=== PATIENT | male | born 1960 | race Caucasian/White ===

== ENCOUNTER 2016-11-27 12:32 | Emergency (ER) | payer BC ==
[2016-11-27 15:20] VITALS: BP 130/82
--- NOTE | 2016-11-27 15:26 | UC ---
Abdominal Pain Male HPI - HPI Summary HPI Summary: AT 11AM HAD SUDDEN ONSET RUQ SHARP ABDOMINAL PAIN THAT RADIATED TO BACK. ONE HOUR LATER SYMPTOMS RESOLVED. NO HISTORY OR FAMILY HISTORY OF PANCREATIC, LIVER OR GB CONCERNS. DRINKS 2 X 6PACKS OF BEER EVERY WEEKEND, NO BEER DURING WEEK. NO FEVER. NO NAUSEA NO VOMITING. NO DIARRHEA, GAS, BURPING OR CONSTIPATION. NO TRAUMA. - History of Current Complaint Chief Complaint: UCAbdominalPain Stated Complaint: SUDDEN ONSET ABDOMINAL PAIN Time Seen by Provider: 11/27/16 15:02 Hx Obtained From: Patient Onset/Duration: Sudden Onset, Lasting Hours, Resolved Timing: Constant Severity Initially: Moderate Severity Currently: None Pain Intensity: 0 Pain Scale Used: 0-10 Numeric Location: Discrete At: RUQ, Epigastric Radiates: Yes Radiates to: Back Character: Colicy, Sharp Aggravating Factor(s):: Nothing Alleviating Factor(s): Spontaneous Resolution Associated Signs And Symptoms: Negative: Diaphoresis, Fever, Cough, Chest Pain, Constipation, Blood in Stool, Urinary Symptoms, Decreased Appetite, Nausea, Vomiting, Diarrhea - Risk Factors Testicular Torsion: Negative Cardiac Risk Factors: Negative - Allergies/Home Medications Allergies/Adverse Reactions: Allergies Allergy/AdvReac Type Severity Reaction Status Date / Time Sulfamethoxazole Allergy Intermediate Rash Verified 11/27/16 13:48 w/Trimethoprim [From Bactrim] Penicillins Allergy Unknown Unknown Verified 11/27/16 13:48 Reaction Details PMH/Surg Hx/FS Hx/Imm Hx Previously Healthy: Yes Endocrine History Of: Denies: Diabetes, Thyroid Disease, Hyperthyroidism, Hypothyroidism, Dyslipidemia Cardiovascular History Of: Reports: Hypertension Denies: Cardiac Disorders, Pacemaker/ICD, Myocardial Infarction, Congestive Heart Failure, Atrial Fibrillation, Deep Vein Thrombosis, Bleeding Disorders Respiratory History Of: Reports: COPD, Asthma GI/ History Of: Reports: Kidney Stones Denies: Gastroesophageal Reflux, Ulcer, Gastrointestinal Bleed, Gall Bladder Disease, Diverticulitis, Renal Disease, Urosepsis Neurological History Of: Denies: TIA, CVA, Dementia, Seizures, Migraine Psychological History Of: Denies: Anxiety, Depression, Bipolar Disorder, Schizophrenia, Post Traumatic Stress Disorder Cancer History Of: Denies: Lung Cancer, Colorectal Cancer, Breast Cancer, Prostate Cancer, Cervical Cancer Other History Of: Negative For: HIV, Hepatitis B, Hepatitis C, Anticoagulant Therapy - Surgical History Surgical History: Yes Surgery Procedure, Year, and Place: T&A - Family History Known Family History: Positive: None Negative: Other - LIVER, GLL BLADDERNO - Social History Alcohol Use: Occasionally Substance Use Type: None Smoking Status (MU): Heavy Every Day Tobacco Smoker Type: Cigarettes Amount Used/How Often: 1/2 pack per day Have You Smoked in the Last Year: Yes When Did the Patient Quit Smoking/Using Tobacco: 08/18/15 Household Exposure Type: Cigarettes Review of Systems Constitutional: Negative Skin: Negative Eyes: Negative ENT: Negative Respiratory: Negative Cardiovascular: Negative Gastrointestinal: Abdominal Pain - RESOLVED Genitourinary: Negative Motor: Negative Neurovascular: Negative Musculoskeletal: Negative Neurological: Negative Psychological: Negative All Other Systems Reviewed And Are Negative: Yes Physical Exam Triage Information Reviewed: Yes Appearance: Well-Appearing, No Pain Distress, Well-Nourished Vital Signs: Initial Vital Signs Temp 97.2 F 11/27/16 13:50 Pulse 66 11/27/16 13:50 Resp 14 11/27/16 13:50 BP 139/80 11/27/16 13:50 Pulse Ox 100 11/27/16 13:50 Vital Signs Reviewed: Yes Eye Exam: Normal ENT Exam: Normal ENT: Positive: Normal ENT inspection, Hearing grossly normal, Pharynx normal, TMs normal Dental Exam: Normal Neck exam: Normal Neck: Positive: Supple, Nontender, No Lymphadenopathy Respiratory Exam: Normal Respiratory: Positive: Chest non-tender, Lungs clear, Normal breath sounds, No respiratory distress, No accessory muscle use Cardiovascular Exam: Normal Cardiovascular: Positive: RRR, No Murmur, Pulses Normal Abdominal Exam: Normal Abdomen Description: Positive: Nontender, No Organomegaly, Soft. Negative: Bruit, CVA Tenderness (R), Distended, Guarding, Hepatomegaly, McBurney's Point Tenderness, Splenomegaly Bowel Sounds: Positive: Present Musculoskeletal Exam: Normal Musculoskeletal: Positive: Strength Intact, ROM Intact, No Edema Neurological Exam: Normal Psychological Exam: Normal Psychological: Positive: Normal Response To Family Skin Exam: Normal Abd Pain Male Course/Dx - Differential Dx/Clinical Impression Differential Diagnosis/HQI/PQRI: Abdominal Aortic Aneurysm, Appendicitis, Bowel Obstruction, Constipation, Gall Bladder Disease, Ischemic Bowel, Pancreatitis, Pneumonia Provider Diagnoses: ACUTE ABDOMINAL PAIN, RESOLVED Discharge - Discharge Plan Condition: Stable Disposition: HOME Patient Education Materials: Acute Abdominal Pain (ED) Referrals: SHIVANI Salazar [Primary Care Provider] -
== END 2016-11-27 15:20 | disposition home or self-care (01) ==
LOC: UCCORT 12:32
DX: R10.11 Right upper quadrant pain (principal); R10.13 Epigastric pain; I10 Essential (primary) hypertension; J44.9 Chronic obstructive pulmonary disease, unspecified; J45.909 Unspecified asthma, uncomplicated; Z87.442 Personal history of urinary calculi; Z88.0 Allergy status to penicillin; Z88.2 Allergy status to sulfonamides; Z87.891 Personal history of nicotine dependence
CPT/HCPCS: 99212; G0463

== ENCOUNTER 2018-12-05 10:19 | Emergency (ER) | payer BC, OTHER ==
[2018-12-05] MEDS ORDERED: Ketorolac INJ* 60 MG/2 ML VIAL IM ONE (11:15)
[2018-12-05] MEDS ORDERED: Cyclobenzaprine TAB* 10 MG PO ONE (11:15)
--- NOTE | 2018-12-05 11:25 | UC ---
Back Pain HPI - HPI Summary HPI Summary: per triage, "I have a pain [left lower back]." Atraumatic left lower back pain for one week; worsening over the last three days. Pain is constant and somewhat alleviated by sitting and lying. Pain in aggrevated by movement "really bad when I try to start walking". Denies fever or urinary symptoms. Similar previous episode "around this area" that was a kidney stone that required surgical intervention. pt states had a large kidney stone 5 years ago that required surgery to remove it. pain today resolves with lying flat in bed and worsens with any type of movement. it was more episodic at onset but is more constant now. - History of Current Complaint Chief Complaint: UCBackPain Stated Complaint: LOWER BACK PAIN Time Seen by Provider: 12/05/18 11:06 Hx Obtained From: Patient Pain Intensity: 8 Aggravating Factor(s): Movement Alleviating Factor(s): Rest Associated Signs And Symptoms: Negative: Fever, Weakness, Numbness, Tingling, Abdominal Pain, Flank Pain, Bladder Incontinence, Bowel Incontinence Related History: Similar Episode Dx As - kidney stone - Risk Factors Cauda Equina Risk Factors: Negative Epidural Abscess Risk Factors: Negative - Allergies/Home Medications Allergies/Adverse Reactions: Allergies Allergy/AdvReac Type Severity Reaction Status Date / Time Penicillins Allergy Unknown Verified 12/05/18 10:53 Reaction Details sulfamethoxazole Allergy Rash Verified 12/05/18 10:53 [From Bactrim] trimethoprim [From Bactrim] Allergy Rash Verified 12/05/18 10:53 Home Medications: Home Medications Acetaminophen [Acetaminophen Extra Strength] 1,500 mg PO ONCE 12/05/18 [History Confirmed 12/05/18] Fluticasone-Salmeterol 250-50* [Advair Diskus 250-50*] 1 puff INH BID 12/05/18 [ History Confirmed 12/05/18] amLODIPine TAB* [Norvasc 5 mg TAB*] 10 mg PO DAILY 12/05/18 [History Confirmed 12/05/18] PMH/Surg Hx/FS Hx/Imm Hx Cardiovascular History: Hypertension Respiratory History: Asthma GI/ History: Kidney Stones Other History Of: Negative For: HIV, Hepatitis B, Hepatitis C, Anticoagulant Therapy - Surgical History Surgical History: Yes Surgery Procedure, Year, and Place: Nephrolithiasis, ~2016, [place]; T&A - Family History Known Family History: Positive: None Negative: Other - LIVER, GLL BLADDERNO - Social History Alcohol Use: Weekly Substance Use Type: None Smoking Status (MU): Light Every Day Tobacco Smoker Type: Cigarettes Amount Used/How Often: <1/5 PPD Length of Time of Smoking/Using Tobacco: Since Age 22 Have You Smoked in the Last Year: Yes When Did the Patient Quit Smoking/Using Tobacco: 08/18/15 Household Exposure Type: Cigarettes Review of Systems All Other Systems Reviewed And Are Negative: Yes Constitutional: Negative: Fever, Chills Cardiovascular: Negative: Chest Pain Gastrointestinal: Negative: Abdominal Pain Genitourinary: Negative: Dysuria, Hematuria, Frequency, Urgency Musculoskeletal: Positive: Other: - L low back pain Neurological: Negative: Weakness, Paresthesia, Numbness Physical Exam Triage Information Reviewed: Yes Appearance: Pain Distress Vital Signs: Initial Vital Signs Temp 98.2 F 12/05/18 10:49 Pulse 70 12/05/18 10:49 Resp 18 12/05/18 10:49 BP 138/75 12/05/18 10:49 Pulse Ox 99 12/05/18 10:49 Vital Signs Reviewed: Yes Eyes: Positive: Conjunctiva Clear ENT: Positive: Normal ENT inspection Neck: Positive: Supple, Nontender, No Lymphadenopathy, Other: - c-spine is non tender Respiratory: Positive: Lungs clear, Normal breath sounds, No respiratory distress Cardiovascular: Positive: RRR, No Murmur Abdomen Description: Positive: Nontender, No Organomegaly, Soft. Negative: Distended, Guarding, Pulsatile Mass Bowel Sounds: Positive: Present Musculoskeletal: Positive: Other: - Back: pt leaning to L side and has spasm when stands upright in same area. no rash. spine is non tender. tender over L paraspinal mm in lumbar region. limited rom due to L low back pain. 5/5 strenght , 2+ reflexes and sensation intact x4. no saddle anesthesia. negative straight leg raises. slow but steady gait. Neurological: Positive: Alert Psychological: Positive: Age Appropriate Behavior Skin Exam: Normal Skin: Negative: Rashes Diagnostics - Laboratory Lab Results: u/a=0.2 urobilogen. - Radiology No standard instances Radiology Interpretation Completed By: Radiologist - Renal U/S IMPRESSION: 1. BILATERAL NEPHROLITHIASIS. 2. NO APPRECIABLE HYDRONEPHROSIS. 3. RENAL CORTICAL PARENCHYMAL THINNING OF THE LEFT KIDNEY. Back Pain Course/Dx - Differential Dx/Diagnosis Differential Diagnosis/HQI/PQRI: Other - no concern for acute abdomen, cauda equina or infection. no sign or hydronephrosis on u/s. i think this is musculoskeletal; however, nephrolithiasis will require urology f/u. pt has f/u with his pcp in 2 days already. Provider Diagnosis: Back pain Discharge - Sign-Out/Discharge Documenting (check all that apply): Patient Departure All imaging exams completed and their final reports reviewed: No Studies - Discharge Plan Condition: Stable Disposition: HOME Prescriptions: Cyclobenzaprine TAB* [Flexeril 10 MG TAB*] 10 mg PO TID PRN #10 tab PRN Reason: Pain - Back HYDROcodone/ACETAMIN 5-325 MG* [Kennard 5-325 TAB*] 1 tab PO Q6H PRN #15 tab MDD 4 PRN Reason: Pain - Back Patient Education Materials: Back Pain (ED), Kidney Stones (ED) Forms: *Work Release Referrals: Kathy Ojeda MD [Primary Care Provider] - 2 Days Ryan Franklin MD [Medical Doctor] - As Soon As Possible Additional Instructions: FOLLOW UP WITH YOUR DOCTOR SCHEDULED IN 2 DAYS. GO TO THE ER FRO ANY WORSENING. AVOID ANTI=INFLAMMATORY MEDICATIONS SUCH MOTRIN, ALEVE, IBUPROFEN UNLESS CLEARED TO USE THEM BY YOUR DOCTOR. FOLLOW UP WITH NEPHROLOGY SOON POSSIBLE (DR FRANKLIN). - Billing Disposition and Condition Condition: STABLE Disposition: Home
[2018-12-05 13:04] VITALS: BP 149/85
== END 2018-12-05 13:05 | disposition home or self-care (01) ==
LOC: UCCORT 10:19
DX: M54.5 Low back pain (principal); F17.210 Nicotine dependence, cigarettes, uncomplicated; Z79.899 Other long term (current) drug therapy; N20.0 Calculus of kidney
CPT/HCPCS: 76775; 81003; 96372; 99212; A9270-GY; G0463; J1885